=== PATIENT | male | born 1990 | race Caucasian/White ===

== ENCOUNTER 2017-10-22 18:37 | Inpatient (IN) ==
[2017-10-22] MEDS ORDERED: IBUPROFEN 800 MG TABLET PO STA (22:55)
[2017-10-22] MEDS ORDERED: VANCOMYCIN INJ 1,250 MG in SODIUM CHLORIDE 0.9% 250 ML IV STA (22:55)
[2017-10-22] MEDS ORDERED: SODIUM CHLORIDE 0.9% 1,000 ML IV STA (22:55)
[2017-10-22] MEDS ORDERED: IBUPROFEN 800 MG TABLET ONE (23:27)
[2017-10-22 23:30] LABS: Basophils % 0.2 % (0.0-0.8); Eosinophils # 0.2 10*3/uL (0.0-0.87); Eosinophils % 1.8 % (0.00-10.9); Hematocrit 42.4 VOL% (42.0-52.0); Hemoglobin 14.6 GM/DL (14.0-18.0); Immature Granulocytes % 0.2 %; Immature Granulocytes Absolute 0.03 #; Lymphocytes % 16.2 % (21.2-54.2); Mean Corpuscular HGB Conc 34.4 GM/DL (32-36); Mean Corpuscular Hemoglobin 31 PG (27-34); Mean Corpuscular Volume 89.8 FL (87-102); Mean Platelet Volume 10.7 FL (9.6-12.0); Monocytes # 1.4 10*3/uL (0.11-0.8); Monocytes % 11.4 % (1.7-12.7); Neutrophils # 8.6 10*3/uL (1.4-7.4); Neutrophils % 70.2 % (38.7-73.9); Platelet Count 154 T/CUMM (130-400); Red Blood Count 4.72 MC/CUMM (3.8-5.5); Red Cell Distribution Width 13.1 % (9.3-17.3); White Blood Count 12.3 T/CUMM (4-12)
[2017-10-23 00:02] LABS: Calcium 8.6 MG/DL (8.5-10.1); Osmolality,Calculated 277.5 MOS/KG (273-304)
[2017-10-23] MEDS ORDERED: methylPREDNISolone SOD SUC 125 MG/2 ML VIAL IV STA (01:28)
[2017-10-23] MEDS ORDERED: diphenhydrAMINE 50 MG/1 ML VIAL IV STA (01:28)
[2017-10-23] MEDS ORDERED: methylPREDNISolone SOD SUC 125 MG/2 ML VIAL ONE (01:34)
[2017-10-23] MEDS ORDERED: diphenhydrAMINE 50 MG/1 ML VIAL ONE (01:34)
[2017-10-23] MEDS: MELOXICAM 7.5 MG TABLET PO SCH (08:39)
[2017-10-23] MEDS: NICOTINE 21 MG/24 HR PATCH TRANSDERM SCH (08:39)
[2017-10-23] MEDS: PANTOPRAZOLE 40 MG TABLET PO SCH (08:40)
[2017-10-23] MEDS: CLINDAMYCIN INJ 600 MG in PREMIX 1 EACH IV SCH ×3 (08:54→23:57)
[2017-10-23] MEDS ORDERED: PREGABALIN 100 MG CAPSULE PO SCH (09:00)
[2017-10-23] MEDS: METHOCARBAMOL 750 MG TABLET PO SCH ×2 (14:49→15:13)
[2017-10-24] MEDS ORDERED: BUPIVACAINE 0.25% 50 ML VIAL ONE (08:42)
[2017-10-24] MEDS ORDERED: ONDANSETRON 4 MG/2 ML VIAL IV PRN ×2 (09:33→09:49)
[2017-10-24] MEDS ORDERED: MORPHINE 2 MG/1 ML SYRINGE IV PRN (09:41)
[2017-10-24] MEDS ORDERED: fentaNYL 100 MCG/2 ML VIAL ONE (09:42)
[2017-10-24] MEDS ORDERED: MIDAZOLAM 2 MG/2 ML VIAL ONE (09:42)
[2017-10-24] MEDS ORDERED: KETOROLAC 30 MG/1 ML VIAL ONE (09:43)
[2017-10-24] MEDS ORDERED: ONDANSETRON 4 MG/2 ML VIAL ONE ×2 (09:43→09:58)
[2017-10-24] MEDS ORDERED: SEVOFLURANE 1 UNIT/15 MINUTE INH ONE (09:43)
[2017-10-24] MEDS ORDERED: PROPOFOL 200 MG/20 ML VIAL IV ONE (09:43)
[2017-10-24] MEDS ORDERED: ACETAMINOPHEN 1,000 MG/100 ML VIAL IV ONE (09:44)
[2017-10-24] MEDS: HYDROmorphone 2 MG/1 ML VIAL IV PRN ×2 (09:55→10:00)
[2017-10-24] MEDS ORDERED: HYDROmorphone 2 MG/1 ML VIAL ONE (09:58)
[2017-10-24] MEDS ORDERED: LACTATED RINGERS 1,000 ML IV SCH (10:00)
[2017-10-24] MEDS: CLINDAMYCIN INJ 600 MG in PREMIX 1 EACH IV SCH (10:34)
[2017-10-24] MEDS: CEFTAROLINE 600 MG in SODIUM CHLORIDE 0.9% 100 ML IV SCH ×2 (10:59→21:24)
[2017-10-24] MEDS: PREGABALIN 100 MG CAPSULE PO SCH (11:00)
[2017-10-24] MEDS: METHOCARBAMOL 750 MG TABLET PO SCH ×2 (11:00→15:29)
[2017-10-24] MEDS: MORPHINE 2 MG/1 ML SYRINGE IV PRN ×3 (11:00→23:24)
[2017-10-24] MEDS: PANTOPRAZOLE 40 MG TABLET PO SCH (11:01)
[2017-10-24] MEDS: MELOXICAM 7.5 MG TABLET PO SCH (11:01)
[2017-10-24] MEDS: NICOTINE 21 MG/24 HR PATCH TRANSDERM SCH (11:01)
[2017-10-24] MEDS ORDERED: diphenhydrAMINE CAP 50 MG CAPSULE PO ONE (11:20)
[2017-10-25] MEDS: NICOTINE 21 MG/24 HR PATCH TRANSDERM SCH (09:47)
[2017-10-25] MEDS: METHOCARBAMOL 750 MG TABLET PO SCH ×2 (09:48→15:18)
[2017-10-25] MEDS: PREGABALIN 100 MG CAPSULE PO SCH (09:48)
[2017-10-25] MEDS: PANTOPRAZOLE 40 MG TABLET PO SCH (09:48)
[2017-10-25] MEDS: MELOXICAM 7.5 MG TABLET PO SCH (09:48)
[2017-10-25] MEDS: CEFTAROLINE 600 MG in SODIUM CHLORIDE 0.9% 100 ML IV SCH ×2 (09:48→21:10)
[2017-10-25] MEDS ORDERED: ACETAMINOPHEN 325 MG TABLET PO ONE (14:59)
[2017-10-26 06:22] LABS: Basophils % 0.6 % (0.0-0.8); Eosinophils # 0.3 10*3/uL (0.0-0.87); Eosinophils % 5.6 % (0.00-10.9); Hemoglobin 14.3 GM/DL (14.0-18.0); Immature Granulocytes % 0.2 %; Immature Granulocytes Absolute 0.01 #; Lymphocytes # 1.9 10*3/uL (1.4-4.0); Mean Corpuscular HGB Conc 34.9 GM/DL (32-36); Mean Corpuscular Hemoglobin 30 PG (27-34); Mean Corpuscular Volume 87.2 FL (87-102); Mean Platelet Volume 10.7 FL (9.6-12.0); Monocytes # 0.6 10*3/uL (0.11-0.8); Monocytes % 11.9 % (1.7-12.7); Neutrophils # 2.3 10*3/uL (1.4-7.4); Neutrophils % 44.7 % (38.7-73.9); Platelet Count 202 T/CUMM (130-400); Red Cell Distribution Width 12.6 % (9.3-17.3); White Blood Count 5.1 T/CUMM (4-12)
[2017-10-26 06:54] LABS: Calcium 8.7 MG/DL (8.5-10.1); Magnesium 2.2 MG/DL (1.8-2.4); Osmolality,Calculated 278.4 MOS/KG (273-304); Potassium 4.1 MMOL/L (3.5-5.1)
[2017-10-26] MEDS: PREGABALIN 100 MG CAPSULE PO SCH (09:00)
[2017-10-26] MEDS: PANTOPRAZOLE 40 MG TABLET PO SCH (09:00)
[2017-10-26] MEDS: CEFTAROLINE 600 MG in SODIUM CHLORIDE 0.9% 100 ML IV SCH ×2 (09:00→21:34)
[2017-10-26] MEDS: NICOTINE 21 MG/24 HR PATCH TRANSDERM SCH (09:00)
[2017-10-26] MEDS: MELOXICAM 7.5 MG TABLET PO SCH (09:00)
[2017-10-26] MEDS: METHOCARBAMOL 750 MG TABLET PO SCH ×2 (09:01→15:25)
[2017-10-27 05:57] LABS: Basophils % 0.6 % (0.0-0.8); Eosinophils # 0.3 10*3/uL (0.0-0.87); Eosinophils % 4.9 % (0.00-10.9); Hematocrit 40.9 VOL% (42.0-52.0); Hemoglobin 14.3 GM/DL (14.0-18.0); Immature Granulocytes % 0.7 %; Immature Granulocytes Absolute 0.04 #; Lymphocytes # 2.5 10*3/uL (1.4-4.0); Lymphocytes % 46.8 % (21.2-54.2); Mean Corpuscular Hemoglobin 31 PG (27-34); Mean Corpuscular Volume 87.8 FL (87-102); Mean Platelet Volume 10.5 FL (9.6-12.0); Monocytes # 0.5 10*3/uL (0.11-0.8); Monocytes % 9.9 % (1.7-12.7); Neutrophils % 37.1 % (38.7-73.9); Platelet Count 199 T/CUMM (130-400); Red Blood Count 4.66 MC/CUMM (3.8-5.5); Red Cell Distribution Width 12.4 % (9.3-17.3); White Blood Count 5.3 T/CUMM (4-12)
[2017-10-27 06:29] LABS: Calcium 8.4 MG/DL (8.5-10.1); Magnesium 2.2 MG/DL (1.8-2.4); Osmolality,Calculated 279.4 MOS/KG (273-304); Potassium 4.3 MMOL/L (3.5-5.1)
[2017-10-27 07:21] LABS: Eosinophils 6 % (0-10); Giant Platelets Few; Hypochromasia 1+; Lymphocytes 42 % (20-55); Ovalocytes Slight; Platelet Estimate Normal; Segmented Neutrophils 45 % (50-85); Total Cells Counted 100
[2017-10-27] MEDS: PREGABALIN 100 MG CAPSULE PO SCH (10:12)
[2017-10-27] MEDS: PANTOPRAZOLE 40 MG TABLET PO SCH (10:12)
[2017-10-27] MEDS: METHOCARBAMOL 750 MG TABLET PO SCH (10:12)
[2017-10-27] MEDS: MELOXICAM 7.5 MG TABLET PO SCH (10:12)
[2017-10-27] MEDS: NICOTINE 21 MG/24 HR PATCH TRANSDERM SCH (10:14)
[2017-10-27] MEDS: CEFTAROLINE 600 MG in SODIUM CHLORIDE 0.9% 100 ML IV SCH (10:16)
[2017-10-27 11:20] VITALS: BP 137/72
== END 2017-10-27 12:55 | disposition home or self-care (01) | DRG 581 ==
LOC: N.ED 18:37 → N.EDINP 10-23 01:27 → SUATTDRO 10-23 01:27 → N.5E 10-23 02:02
PROVIDERS: ADMIT Internal Medicine; ATTEND Internal Medicine

== ENCOUNTER 2018-03-22 19:49 | Inpatient (IN) ==
[2018-03-22] MEDS ORDERED: CEFTAROLINE 600 MG in SODIUM CHLORIDE 0.9% 100 ML IV STA (20:57)
[2018-03-22 21:43] LABS: Basophils % 0.4 % (0.0-0.8); Eosinophils # 0.3 10*3/uL (0.0-0.87); Eosinophils % 4.7 % (0.00-10.9); Hemoglobin 13.4 GM/DL (14.0-18.0); Immature Granulocytes % 0.4 %; Immature Granulocytes Absolute 0.02 #; Lymphocytes # 2.5 10*3/uL (1.4-4.0); Mean Corpuscular HGB Conc 35.3 GM/DL (32-36); Mean Corpuscular Hemoglobin 30 PG (27-34); Mean Corpuscular Volume 85.8 FL (87-102); Mean Platelet Volume 10.5 FL (9.6-12.0); Monocytes # 0.6 10*3/uL (0.11-0.8); Monocytes % 11.1 % (1.7-12.7); Neutrophils # 2.2 10*3/uL (1.4-7.4); Neutrophils % 38.4 % (38.7-73.9); Platelet Count 152 T/CUMM (130-400); Red Blood Count 4.43 MC/CUMM (3.8-5.5); Red Cell Distribution Width 12.2 % (9.3-17.3); White Blood Count 5.6 T/CUMM (4-12)
[2018-03-22 21:46] LABS: Lactic Acid 0.7 MMOL/L (0.4-2.0)
[2018-03-22 22:10] LABS: Alanine Aminotransferase 21 U/L (16-61); Albumin 3.7 G/DL (3.4-5.0); Alkaline Phosphatase 97 U/L (45-117); Aspartate Amino Transferase 19 U/L (0-37); Bilirubin,Total < 0.39 MG/DL (0.2-1.0); Blood Urea Nitrogen 23 MG/DL (7-18); Calcium 8.5 MG/DL (8.5-10.1); Glucose 86 MG/DL (74-106); Osmolality,Calculated 281.4 MOS/KG (273-304); Potassium 3.7 MMOL/L (3.5-5.1); Sodium 140 MMOL/L (136-145); Total Protein 6.7 G/DL (6.4-8.3)
[2018-03-22] MEDS ORDERED: ACETAMINOPHEN 325 MG TABLET PO PRN (22:12)
[2018-03-22] MEDS ORDERED: SODIUM CHLORIDE 0.9% 1,000 ML IV SCH (23:00)
[2018-03-23] MEDS: BACITRACIN OINT 0.9 GM PACK TOP SCH ×3 (00:49→22:17)
[2018-03-23 01:31] LABS: Sedimentation Rate-Westergren 5 MM/HR (0-15)
[2018-03-23 07:51] LABS: Basophils % 0.7 % (0.0-0.8); Eosinophils # 0.2 10*3/uL (0.0-0.87); Eosinophils % 5.4 % (0.00-10.9); Hematocrit 38.8 VOL% (42.0-52.0); Hemoglobin 13.8 GM/DL (14.0-18.0); Lymphocytes # 1.9 10*3/uL (1.4-4.0); Mean Corpuscular HGB Conc 35.6 GM/DL (32-36); Mean Corpuscular Hemoglobin 31 PG (27-34); Mean Corpuscular Volume 86.4 FL (87-102); Mean Platelet Volume 10.5 FL (9.6-12.0); Monocytes # 0.5 10*3/uL (0.11-0.8); Monocytes % 11.4 % (1.7-12.7); Neutrophils # 1.8 10*3/uL (1.4-7.4); Neutrophils % 39.5 % (38.7-73.9); Platelet Count 144 T/CUMM (130-400); Red Blood Count 4.49 MC/CUMM (3.8-5.5); Red Cell Distribution Width 12.3 % (9.3-17.3); White Blood Count 4.5 T/CUMM (4-12)
[2018-03-23 08:18] LABS: Calcium 8.1 MG/DL (8.5-10.1); Osmolality,Calculated 283.3 MOS/KG (273-304); Potassium 3.9 MMOL/L (3.5-5.1)
[2018-03-23] MEDS ORDERED: BUTALBITAL/ACETAMIN/CAFFEINE 50-325-40 MG TABLET PO PRN (08:29)
[2018-03-23] MEDS ORDERED: ADDERALL PO SCH (09:00)
[2018-03-23] MEDS: METHOCARBAMOL 750 MG TABLET PO SCH ×5 (09:03→22:18)
[2018-03-23] MEDS: CEFTAROLINE 600 MG in SODIUM CHLORIDE 0.9% 100 ML IV SCH ×2 (09:03→21:55)
[2018-03-23] MEDS: PANTOPRAZOLE 40 MG TABLET PO SCH (09:03)
[2018-03-23] MEDS: SODIUM CHLORIDE 0.9% 1,000 ML IV SCH (09:03)
[2018-03-23] MEDS: PREGABALIN 100 MG CAPSULE PO SCH ×2 (09:03→10:29)
[2018-03-23] MEDS: MELOXICAM 7.5 MG TABLET PO SCH ×2 (09:03→10:30)
[2018-03-23 12:47] LABS: Sedimentation Rate-Westergren 3 MM/HR (0-15)
[2018-03-24] MEDS: SODIUM CHLORIDE 0.9% 1,000 ML IV SCH (04:29)
[2018-03-24 06:23] LABS: Basophils % 0.6 % (0.0-0.8); Eosinophils # 0.2 10*3/uL (0.0-0.87); Eosinophils % 4.6 % (0.00-10.9); Hematocrit 37.6 VOL% (42.0-52.0); Hemoglobin 12.9 GM/DL (14.0-18.0); Immature Granulocytes % 0.2 %; Immature Granulocytes Absolute 0.01 #; Lymphocytes # 2.1 10*3/uL (1.4-4.0); Mean Corpuscular HGB Conc 34.3 GM/DL (32-36); Mean Corpuscular Hemoglobin 30 PG (27-34); Mean Corpuscular Volume 88.7 FL (87-102); Mean Platelet Volume 10.7 FL (9.6-12.0); Monocytes # 0.5 10*3/uL (0.11-0.8); Monocytes % 10.9 % (1.7-12.7); Neutrophils # 1.8 10*3/uL (1.4-7.4); Neutrophils % 38.7 % (38.7-73.9); Platelet Count 141 T/CUMM (130-400); Red Blood Count 4.24 MC/CUMM (3.8-5.5); Red Cell Distribution Width 12.3 % (9.3-17.3); White Blood Count 4.8 T/CUMM (4-12)
[2018-03-24 06:41] LABS: Calcium 8.2 MG/DL (8.5-10.1); Osmolality,Calculated 283.1 MOS/KG (273-304); Potassium 4.1 MMOL/L (3.5-5.1)
[2018-03-24 08:00] VITALS: BP 115/75
[2018-03-24] MEDS: PREGABALIN 100 MG CAPSULE PO SCH (08:54)
[2018-03-24] MEDS: METHOCARBAMOL 750 MG TABLET PO SCH (08:54)
[2018-03-24] MEDS: PANTOPRAZOLE 40 MG TABLET PO SCH (08:55)
[2018-03-24] MEDS: BACITRACIN OINT 0.9 GM PACK TOP SCH (08:55)
[2018-03-24] MEDS: MELOXICAM 7.5 MG TABLET PO SCH (08:55)
[2018-03-24] MEDS: CEFTAROLINE 600 MG in SODIUM CHLORIDE 0.9% 100 ML IV SCH (09:28)
== END 2018-03-24 11:38 | disposition home or self-care (01) | DRG 603 ==
LOC: N.ED 19:49 → N.EDINP 22:08 → N.2E 22:57